=== PATIENT | female | born 1965 | race Caucasian/White ===

== ENCOUNTER 2017-12-27 15:55 | Emergency (ER) | payer OTHER | END 2017-12-27 18:23 | disposition home or self-care (01) | LOC: D.ER 15:55 | DX: L02.211 Cutaneous abscess of abdominal wall (principal) ==

== ENCOUNTER 2017-12-29 15:14 | Emergency (ER) | payer OTHER | END 2017-12-29 16:47 | disposition home or self-care (01) | LOC: D.ER 15:14 | DX: L02.211 Cutaneous abscess of abdominal wall (principal) ==